=== PATIENT | female | born 1980 | race Caucasian/White ===

== ENCOUNTER 2018-01-21 09:35 | Emergency (ER) | payer OTHER ==
[~2018-01-21] VITALS: Ht 157.5 cm; Wt 56.7 kg
[2018-01-21] MEDS ORDERED: PERCOGESIC EXT1 EACH PO (09:48)
[2018-01-21] MEDS ORDERED: INTESTINEX680 M1 PO (11:08)
== END 2018-01-21 12:07 | disposition home or self-care (01) ==
LOC: ER 09:35
DX: R19.7 Diarrhea, unspecified (principal)

== ENCOUNTER 2018-01-23 23:11 | Emergency (ER) | payer OTHER ==
[~2018-01-23] VITALS: Ht 157.5 cm; Wt 56.7 kg
[~2018-01-23 23:11] MED LIST: INTESTINEX680 M1 PO; PERCOGESIC EXT1 EACH PO
[2018-01-24] MEDS ORDERED: INTESTINEX680 M1 PO (08:41)
[2018-01-24] MEDS ORDERED: PEPCID AC20 MG PO (08:41)
[2018-01-24] MEDS ORDERED: LEVSIN/SL0.125 MG PO (08:41)
[2018-01-24] MEDS ORDERED: KETO10TA2 PO (08:41)
== END 2018-01-24 09:06 | disposition home or self-care (01) ==
LOC: ER 23:11
DX: I88.0 Nonspecific mesenteric lymphadenitis (principal); K52.9 Noninfective gastroenteritis and colitis, unspecified